=== PATIENT | female | born 1990 | race Two or more races ===

== ENCOUNTER → 2024-05-10 | Day surgery (SDC) | payer MEDICAID ==
[2024-05-04 15:06] LABS: Urine Bacteria None Seen /hpf (None Seen)
[2024-05-04 15:11] LABS: Urine Blood Negative /uL (Negative); Urine Clarity Clear (Clear); Urine Color Yellow (Yellow); Urine Mucus FEW (None Seen); Urine Protein, UAD Negative (Negative); Urine Urobilinogen Normal (Negative); Urine WBC 1 /hpf (0 - 5); Urine pH 5.5 (5.0-9.0)
[2024-05-04 15:14] LABS: Eosinophils # (auto) 0.3 10 ^3/uL (0-0.8); Monocytes # (auto) 0.5 10 ^3/uL (0-1.3); Monocytes % (auto) 5.3 % (0.0-12.0); Neutrophils # (auto) 5.8 10 ^3/uL (1.6-8.6)
[2024-05-04 15:15] LABS: Basophils # (auto) 0 10 ^3/uL (0-0.2); Basophils % (auto) 0.4 % (0.0-2.0); Eosinophils % (auto) 3.1 % (0.0-7.0); Hematocrit 26.1 % (36.0-46.0); Hemoglobin 8.4 g/dL (12.2-16.2); Lymphocytes # (auto) 2.9 10 ^3/uL (0.4-5.4); Lymphocytes % (auto) 30.3 % (10.0-50.0); Mean Corpuscular Hemoglobin 21.2 pg (28.0-32.0); Mean Corpuscular Hgb Conc. 32.3 g/dL (32.0-36.0); Mean Corpuscular Volume 65.7 fL (80.0-100.0); Neutrophils % (auto) 60.9 % (37.0-80.0); Platelet Count (auto) 293 10^3/uL (140-450); Red Blood Cells 3.97 10^6/uL (4.0-5.20); White Blood Cell 9.6 10^3/uL (4.4-10.8)
[2024-05-04 15:19] LABS: Red Cell Distribution Width 21.5 % (11.8-14.3)
[2024-05-04 15:32] LABS: Alanine Aminotransferase 44 U/L (7-40); Albumin 4.4 g/dL (3.2-4.8); Alkaline Phosphatase 110 U/L (46-116); Anion Gap 9 (5-15); Aspartate Aminotransferase 23 U/L (13-40); BUN/Creatinine Ratio 15.9 (10.0-20.0); Bilirubin, Total 0.4 mg/dL (0.2-1.0); Blood Urea Nitrogen 11 mg/dL (9-23); Calcium 9.3 mg/dL (8.7-10.4); Carbon Dioxide 25 mmol/L (20-31); Chloride 105 mmol/L (98-107); Glucose 122 mg/dL (74-106); Potassium 3.6 mmol/L (3.5-5.1); Sodium 139 mmol/L (136-145); Total Protein 7.9 g/dL (5.7-8.2)
[2024-05-04 15:33] LABS: INR 1.02 (0.9-1.15); Partial Thromboplastin Time 26.8 SEC (24.5-34.5); Prothrombin Time 10.8 sec (9.3-11.8)
[~2024-05-10] VITALS: Ht 162.6 cm; Wt 166.5 kg
[~2024-05-10] MED LIST: FER325T PO; FURO20TA3 PO; GABA-1308 PO; METF-489 PO; POTA-220 PO; PROPOFOL 10 MG/ML 20 ML IV ONE; SEMA2INJ3 SC; TRAZ-228 PO; fentaNYL CITRATE 100 MCG/2 ML VL ONE
--- NOTE | 2024-05-10 09:37 | DVHHP2 ---
GI H&P Pre-Op Assessment Date: 05/10/24 Chief complaint: Anemia, blood in stool, lower abdominal pain. HPI: per clinic note Past medical history: per clinic note Past surgical history: per clinic note Family history: per clinic note Physical exam: General: NAD, AAOX3 HEENT: PERRL, no scleral icterus, normal hearing, gums without lesions or bleeding, oropharynx clear without erythema or exudate. Neck: Supple without enlargement of the thyroid, or lymphadenopathy. Chest: Normal size and shape, no tenderness, lung echevarria clear to auscultation and percussion, nonlabored breathing. Heart: RRR, no murmur Abdomen: non-distended, no tenderness to palpation, +BS, no hepatosplenomegaly Extremities: no edema Neurological: CN II-XII intact, sensation intact in all extremities, 5+ strength in all extremities Skin: No rashes, No jaundice Assessment: - Anemia, blood in stool, lower abdominal pain. Plan: - EGD - Colonoscopy - Risks (bleeding, infection, perforation, reaction to sedation medications and cardiopulmonary arrest) and benefit of the procedure were explained to patient. Patient agrees to undergo the procedure. ZARA CARLTON MD May 10, 2024 09:37
[2024-05-10 10:08] VITALS: PULSE 95; RESP 20; TEMP 99.2; O2SAT 95
--- NOTE | 2024-05-10 10:09 | DVHOP2 ---
Operative Report DATE OF OPERATION: 05/10/24 PROCEDURE: Upper Endoscopy. PREOPERATIVE INDICATION: The patient is a 33 -year-old female undergoing endoscopy for anemia. POSTOPERATIVE DIAGNOSES: 1. Normal EGD PROCEDURE PERFORMED BY: Spencer Pozo SCOPE: Olympus videoendoscope. ASA CLASS: 4 PREOPERATIVE MEDICATIONS: MAC with Dr Up PROCEDURE IN DETAIL: After obtaining an informed consent, the patient was placed on left lateral decubitus position. The patient was then sedated with the above medications. A bite block was placed between her teeth. The endoscope was then passed through the oropharynx, into the esophagus, and through the stomach and pylorus up to the second and third part of the duodenum. The duodenum was normal in appearance. The stomach was normal in appearance. The GE junction was normal in appearance at 35 cm. The esophagus was normal in appearance. The endoscope was then withdrawn. The patient tolerated the procedure well without difficulty. COMPLICATIONS : None SPECIMENS: None DISPOSITION: D/C to home PLAN: 1. Will proceed with colonoscopy. SPENCER POZO MD May 10, 2024 10:09
--- NOTE | 2024-05-10 10:10 | DVHDS2 ---
Physician Discharge Progress N Final Diagnosis: Normal EGD Internal hemorrhoids Operations or Procedures: Operations or Procedures EGD Colonoscopy Condition on Discharge: Good Disposition: Home Discharge Instructions: Diet: Regular Activity: No Restrictions, As Tolerated Medications: Resume with previous home medications Follow Up Care: Discharge Statement: "Patient was advised to return to the ER or call 911 if any headaches, dizziness, shortness of breath, chest pain, abdominal pain, bleeding, fevers, or worsening of medical condition. Patient was counseled about treatment plan, medications, possible side effects, patientverbalized understanding. All questions were answered to the best of my ability. This discharge took greater then 30 minutes in planning, reviewing documentation, counseling the patient, and discussing with other team members." ZARA CARLTON MD May 10, 2024 10:10
--- NOTE | 2024-05-10 10:10 | DVHOP2 ---
Operative Report DATE OF OPERATION: 05/10/24 PROCEDURE: Colonoscopy. PREOPERATIVE INDICATION: The patient is a 33 -year-old female undergoing colonoscopy for anemia, blood in the stool and lower abdominal pain. POSTOPERATIVE DIAGNOSES: 1. Internal hemorrhoids PROCEDURE PERFORMED BY: Spencer Pozo M.D. SCOPE: Olympus videocolonoscope. ASA CLASS: 4 PREOPERATIVE MEDICATIONS: MAC with Dr Up PROCEDURE IN DETAIL: After obtaining an informed consent, the patient was placed on left lateral decubitus position. She was then sedated with the above medications. A rectal examination was performed that was normal. The colonoscope was then passed through the anus into the rectosigmoid and through the descending, transverse, and ascending colon up to the cecum with visualization of the appendiceal orifice, base of the cecum and the ileocecal valve. No mass or polyp was observed. There were internal hemorrhoids. The colonoscope was then withdrawn. The patient tolerated the procedure well without difficulty. WITHDRAWAL TIME: 6 minutes QUALITY OF THE PREP: [place] Bowel Prep score: 7 COMPLICATIONS : None SPECIMENS: None DISPOSITION: D/C to home PLAN: 1. Patient will need other workup for anemia. SPENCER POZO MD May 10, 2024 10:10
[2024-05-10 10:13] VITALS: PULSE 84; RESP 24; O2SAT 100
[2024-05-10 10:53] VITALS: BP 129/83; PULSE 90; RESP 20; O2SAT 95
== END | disposition home or self-care (01) ==
LOC: GI 08:16
PROVIDERS: ATTEND Internal Medicine Gastroenterology
DX: K92.1 Melena (principal); D64.9 Anemia, unspecified; R10.30 Lower abdominal pain, unspecified; K64.8 Other hemorrhoids; E11.9 Type 2 diabetes mellitus without complications; E66.9 Obesity, unspecified; Z68.44 Body mass index [BMI] 60.0-69.9, adult; Z79.84 Long term (current) use of oral hypoglycemic drugs; Z79.899 Other long term (current) drug therapy
CPT/HCPCS: 36415; 43235; 45378; 80053; 81001; 82962; 84702; 85025; 85610; 85730; J2704; J3010; J7030

== ENCOUNTER 2024-05-22 18:10 | Emergency (ER) | payer MEDICAID ==
[~2024-05-22] VITALS: Ht 162.6 cm; Wt 167.0 kg
[~2024-05-22 18:10] MED LIST changes: -PROPOFOL 10 MG/ML 20 ML IV ONE; -fentaNYL CITRATE 100 MCG/2 ML VL ONE
[2024-05-22 19:11] VITALS: BP 128/83; PULSE 79; RESP 16; O2SAT 100
--- NOTE | 2024-05-22 19:44 | ED.PDOC ---
HPI (NEURO) HPI Comments HPI: Poor Historian. 33-year-old female with a history of anemia and blood transfusion in the past sent by her PCP for evaluation of low hemoglobin above seven that was obtained on May 09. He called her today and told her to go to the ER for possible blood transfusion. Patient had blood transfusion in March. Patient was seen by GI doctor and had upper and lower endoscopies and they are suspecting with potential bleed. She has a close follow up appointment with GI. Patient denies any active bleeding. Vitals: Temp: 98.9 F RR: 16 02 sat: 100% on room air HR: 79 BP: 128/83 PMH: DM, anemia, abdominal hernia PSH: colonoscopy, endoscopy Social history: denies tobacco use, denies ETOH use, denies drug use Meds: metformin, potassium, iron, gabapentin allergies: nkda REVIEW OF SYSTEMS: CONSTITUTIONAL: Denies acute: fever, diaphoresis, chills, HEAD: Denies acute: headache, photophobia Eyes: Denies acute: Double vision, vision loss, eye pain, eye discharge. EARS: Denies acute: tinnitus, hearing loss, ear discharge, ear pain, THROAT: Denies acute: sore throat, swelling, difficulty swallowing , pain with swallowing, change in voice. NECK: Denies acute: neck pain, neck swelling, stiff neck. HEART: Denies acute : chest pain, palpitations, LUNGS: Denies acute: SOB, wheezing, cough, hemoptysis ABDOMEN: Denies acute: abdominal pain, Nausea, Vomiting, diarrhea, melena , hematemesis, hematochezia SKIN: Denies acute: rash, redness, lesions, itchiness. EXTREMITIES: Denies acute: calf pain, numbness, tingling, weakness, denies pain in extremity. Denies acute: Low back pain. Neuro: Denies acute: focal neurological deficit, motor or sensory focal neurological deficit, tremors, seizure like activity, confusion, change in mental status, loss of bowel or bladder function, cauda equina like symptoms. : Denies acute: dysuria, hematuria, flank pain, increase in urinary frequency. PSYCH: Denies acute: hallucination, suicidal ideation, homicidal ideation. FEMALE: Denies acute: abnormal vaginal bleeding, foul odor, unusual discharge. PHYSICAL EXAM: General: no acute distress, awake and alert. Head: normocephalic, atraumatic. Neck: supple, trachea is midline, no swelling. Throat: Normal phonation. Eyes:, no erythema, no purulent discharge, no proptosis, no icterus. Heart: regular rate, regular rhythm, no significant murmur appreciated. Lungs: no apparent respiratory distress, Able to speak in full sentences. No wheezing, no rhonchi, no crackles. No stridors Clear to auscultation bilaterally. Abdomen: non tender to palpation, non distended, soft, no guarding, no rebound, + bowel sounds. Morbidly obese Neuro: Awake, Alert, oriented to name, self, situation, follows commands GCS=15. Speech is normal. Skin: no petechia, no purpura, no cyanosis, slightly-pale, not jaundice. Lower extremities: --no - Pitting edema no deformity, no focal swelling, no calf TTP. Makes eye contact. moves all four extremities. Face: no apparent facial droop. Ambulating in the ED independently. Chief Complaint: Abnormal LAB's Time Seen by MD: 19:44 Primary Care Provider: carolyn Reviewed Notes: Nurses Notes, Medications, Allergies Information Source: Patient Mode of Arrival: Ambulatory Was a procedure done? Was a procedure done?: No Differential Diagnosis (SZ) Seizure: N/A General Weakness: Other (Includes but not limited to thyroid disease, encephalopathy, electrolyte abnormality, sepsis, infection, intracranial pathology, drug adverse effects, arrhythmia, kidney insufficiency, ACS, CVA, malignancy, anemia) X-Ray, Labs, Meds, VS Vital Signs Date Time Temp Pulse Resp B/P (MAP) Pulse Ox O2 Delivery O2 Flow Rate FiO2 05/22/24 19:11 98.9 79 16 128/83 (98) 100 Lab Test 05/22/24 19:45 Range/Units White Blood Count 9.1 4.4-10.8 10^3/uL Red Blood Count 4.11 4.0-5.20 10^6/uL Hemoglobin 7.9 L 12.2-16.2 g/dL Hematocrit 26.5 L 36.0-46.0 % Mean Corpuscular Volume 64.4 L 80.0-100.0 fL Mean Corpuscular Hemoglobin 19.2 L 28.0-32.0 pg Mean Corpuscular Hemoglobin Concent 29.8 L 32.0-36.0 g/dL Red Cell Distribution Width 21.2 H 11.8-14.3 % Platelet Count 306 140-450 10^3/uL Mean Platelet Volume 8.4 6.9-10.8 fL Neutrophils (%) (Auto) 60.7 37.0-80.0 % Lymphocytes (%) (Auto) 31.1 10.0-50.0 % Monocytes (%) (Auto) 5.6 0.0-12.0 % Eosinophils (%) (Auto) 2.3 0.0-7.0 % Basophils (%) (Auto) 0.3 0.0-2.0 % Neutrophils # (Auto) 5.5 1.6-8.6 10 ^3/uL Lymphocytes # (Auto) 2.8 0.4-5.4 10 ^3/uL Monocytes # (Auto) 0.5 0-1.3 10 ^3/uL Eosinophils # (Auto) 0.2 0-0.8 10 ^3/uL Basophils # (Auto) 0 0-0.2 10 ^3/uL Nucleated Red Blood Cells 0.1 % Sodium Level 140 136-145 mmol/L Potassium Level 3.7 3.5-5.1 mmol/L Chloride Level 106 98-107 mmol/L Carbon Dioxide Level 27 20-31 mmol/L Anion Gap 7 5-15 Blood Urea Nitrogen 13 9-23 mg/dL Creatinine 0.78 0.550-1.02 mg/dL Glomerular Filtration Rate Calc 103 >90 mL/min BUN/Creatinine Ratio 16.7 10.0-20.0 Serum Glucose 148 H 74-106 mg/dL Calcium Level 9.4 8.7-10.4 mg/dL Total Bilirubin 0.3 0.2-1.0 mg/dL Aspartate Amino Transferase (AST) 20 13-40 U/L Alanine Aminotransferase (ALT) 33 7-40 U/L Alkaline Phosphatase 97 46-116 U/L Total Protein 7.4 5.7-8.2 g/dL Albumin 4.1 3.2-4.8 g/dL Time of 1ST Reevaluation: 22:11 Reevaluation 1ST: Unchanged Patient Education/Counseling: Diagnosis, Treatment Family Education/Counseling: No Family Present Comments Patient presented with the above HPI.--low hemoglobin---workup was initiated. patient was found with the above mentioned diagnosis. Patient ED course and VS have been stabilized. Patient has been reassessed in the ED and remained in a stable condition. Pertinent incidental findings were discussed with the patient and/or family. Patient/family voices understanding and is agreeable with plan. Patient has been observed in the ED adequate length of time to insure improvement/stability. Patient denies active bleeding. Patient does not meet criteria for transfusion at this time. patient was discharged home in a stable condition. All the reports of any imaging studies that were ordered by myself were reviewed by myself. Departure 1 Departure Time of Disposition: 21:47 Impression: Primary Impression: Anemia Disposition: HOME / SELF CARE / HOMELESS Condition: Stable Additional Instructions: Additional discharge instructions: You MUST follow-up with your primary care/family doctor in 1 to 2 days. If you are unable to see your primary care/family doctor, please return to our emergency room for re-assessment and re-evaluation in 1 to 2 days. Return to the emergency room here in our facility or to the nearest ER [facility] if your symptoms change or worsen. CONSULTATIONS: you MUST Follow-up for consultation as soon as possible with: --GI and Hematology in 1-2 days. Please call for appointment.- You MUST call the consultants office yourself to make an appointment. You may need to arrange that through your insurance and/or your primary/family doctor. If you are unable to see the workforce management consultant in 1 to 2 days, you must return to our emergency room (or any other ER of your choice) for re-assessment and re-evaluation. Adequate fluid hydration. Continue taking your daily iron supplements Repeat CBC levels in 48-72 hours. Discharged With: Self Critical Care Note Critical Care Time?: No I personally scribed for KIERA SHER DO ([email or web address]) on 05/22/24 at 19:44. Electronically submitted by Rosario Barnhart ([email or web address]). KIERA SHER DO May 22, 2024 19:44
[2024-05-22 19:59] LABS: Basophils # (auto) 0 10 ^3/uL (0-0.2); Eosinophils # (auto) 0.2 10 ^3/uL (0-0.8); Hemoglobin 7.9 g/dL (12.2-16.2); Lymphocytes # (auto) 2.8 10 ^3/uL (0.4-5.4); Mean Corpuscular Hemoglobin 19.2 pg (28.0-32.0); Monocytes # (auto) 0.5 10 ^3/uL (0-1.3); White Blood Cell 9.1 10^3/uL (4.4-10.8)
[2024-05-22 20:02] LABS: Basophils % (auto) 0.3 % (0.0-2.0); Eosinophils % (auto) 2.3 % (0.0-7.0); Hematocrit 26.5 % (36.0-46.0); Lymphocytes % (auto) 31.1 % (10.0-50.0); Mean Corpuscular Hgb Conc. 29.8 g/dL (32.0-36.0); Mean Corpuscular Volume 64.4 fL (80.0-100.0); Monocytes % (auto) 5.6 % (0.0-12.0); Neutrophils # (auto) 5.5 10 ^3/uL (1.6-8.6); Neutrophils % (auto) 60.7 % (37.0-80.0); Nucleated Red Blood Cells % 0.1 %; Platelet Count (auto) 306 10^3/uL (140-450); Red Blood Cells 4.11 10^6/uL (4.0-5.20); Red Cell Distribution Width 21.2 % (11.8-14.3)
[2024-05-22 20:19] LABS: Alanine Aminotransferase 33 U/L (7-40); Albumin 4.1 g/dL (3.2-4.8); Alkaline Phosphatase 97 U/L (46-116); Anion Gap 7 (5-15); Aspartate Aminotransferase 20 U/L (13-40); BUN/Creatinine Ratio 16.7 (10.0-20.0); Blood Urea Nitrogen 13 mg/dL (9-23); Calcium 9.4 mg/dL (8.7-10.4); Carbon Dioxide 27 mmol/L (20-31); Chloride 106 mmol/L (98-107); Potassium 3.7 mmol/L (3.5-5.1); Sodium 140 mmol/L (136-145)
[2024-05-22 20:20] LABS: Bilirubin, Total 0.3 mg/dL (0.2-1.0); Total Protein 7.4 g/dL (5.7-8.2)
[2024-05-22 20:23] LABS: Glucose 148 mg/dL (74-106)
[2024-05-22] MEDS: SODIUM CHLORIDE 0.9% 1,000 ML IV ONE (22:41)
== END 2024-05-22 22:45 | disposition home or self-care (01) ==
LOC: ER 18:10
DX: D64.9 Anemia, unspecified (principal); E11.9 Type 2 diabetes mellitus without complications; Z98.890 Other specified postprocedural states; Z79.899 Other long term (current) drug therapy
CPT/HCPCS: 36415; 80053; 85025; 86850; 86900; 86901

== ENCOUNTER 2024-10-01 18:51 | Emergency (ER) | payer MEDICAID ==
[~2024-10-01] VITALS: Ht 162.6 cm; Wt 161.7 kg
[2024-10-01 19:00] VITALS: BP 117/76; PULSE 75; RESP 18; TEMP 98; O2SAT 97
--- NOTE | 2024-10-01 21:21 | ED.PDOC ---
History of Present Illness(SKN HPI Comments THIS IS A 34-YEAR-OLD FEMALE PRESENTS TO THE ED FOR PICC LINE CARE. PATIENT STATES LAST DRESSING CHANGE WAS OVER 1 WEEK AGO CURRENTLY HAS A PICKING HER RIGHT ARM THAT SHE USES FOR IRON INFUSIONS ONCE A WEEK. REPORTS NO FEVER, CHILLS, NAUSEA, VOMITING, OR REDNESS SURROUNDING THE PICC LINE OR DRAINAGE NOTES NO PAIN AT THIS TIME. Chief Complaint: Tube Replacement Time Seen by MD: 19:18 Primary Care Provider: NONE History of Present Illness: Nurses Notes, Medications, Allergies Allergies: Coded Allergies: NO KNOWN ALLERGIES (Unverified , 05/07/24) Home Meds Reported Medications Ferrous Sulfate (FERROUS SULFATE) 325 Mg Tb, 325 MG PO, TAB 05/07/24 Semaglutide (Ozempic) 2 Mg/3 Ml Inj, 2 MG SC QWEEKLY, INJ 05/07/24 Gabapentin (Gabapentin) 100 Mg Cap, 100 MG PO, CAP 05/07/24 Trazodone Hcl (Trazodone Hcl) 100 Mg Tab, 100 MG PO, TAB 05/07/24 Potassium Chloride (Klor-Con M20) 20 Meq Tab, 20 MEQ PO DAILY, TAB 05/07/24 Furosemide (Furosemide) 20 Mg Tab, 20 MG PO DAILY, TAB 05/07/24 Metformin Hydrochloride (METFORMIN HCL ER) 500 Mg Tab, 500 MG PO DAILY, TAB 05/07/24 Information Source: Patient Mode of Arrival: Ambulatory Past Medical History PAST MEDICAL HISTORY: Denies Past Medical History (Other): IRON DEFICIENCY Surgical History: Denies all surgeries TOWER CRANE OPERATOR History: No Pertinent TOWER CRANE OPERATOR History Family History Family History: Unknown Social History Smoker: Non-Smoker Alcohol: Denies ETOH Use Drugs: Denies Drug Use Constitutional: denies: chills, diaphoresis, fatigue, fever, malaise, sweats, weakness, others EENTM: denies: blurred vision, double vision, ear bleeding, ear discharge, ear drainage, ear pain, ear ringing, eye pain, eye redness, hearing loss, mouth pain, mouth swelling, nasal discharge, nose bleeding, nose congestion, nose pain, photophobia, tearing, throat pain, throat swelling, voice changes, others Respiratory: denies: cough, hemoptysis, orthopnea, SOB at rest, shortness of breath, SOB with excertion, stridor, wheezing, others Cardiovascular: denies: chest pain, dizzy spells, diaphoresis, Dyspnea on exertion, edema, irregular heart beat, left arm pain, lightheadedness, palpitations, PND, syncope, others Gastrointestinal: denies: abdomen distended, abdominal pain, blood streaked bowels, constipated, diarrhea, dysphagia, difficulty swallowing, hematemesis, melena, nausea, poor appetite, poor fluid intake, rectal bleeding, rectal pain, vomiting, others Genitourinary: denies: abnormal vagina bleeding, burning, dyspareunia, dysuria, flank pain, frequency, hematuria, incontinence, pain, , vagina discharge, urgency, others Neurological: denies: dizziness, fainting, headache, left sided numbness, left sided weakness, numbness, paresthesia, pre-existing deficit, right sided numbness, right sided weakness, seizure, speech problems, tingling, tremors, weakness, others Musculoskeletal: denies: back pain, gout, joint pain, joint swelling, muscle pain, muscle stiffness, neck pain, others Integumetry: reports: others (PICC LINE DRESSING RIGHT BICEP); denies: bruises, change in color, change in hair/nails, dryness, laceration, lesions, lumps, rash, wounds Allergic/Immunocompromised: denies: Difficulty Healing, Frequent Infections, Hives, Itching, others Hematologic/Lymphatic: denies: anemia, blood clots, easy bleeding, easy bruising, swollen glands, others Endocrine: denies: excessive hunger, excessive sweating, excessive thirst, excessive urination, flushing, intolerance to cold, intolerance to heat, unexpla ined weight gain, unexplained weight loss, others Psychiatric: denies: anxiety, bipolar disorder, depression, hopeless, panic disorder, schizophrenia, sleepless, suicidal, others Physical Exam General Appearance: No Apparent Distress, Normal HEENT: Pharynx Normal Neck: Full Range of Motion, Non-Tender Respiratory: Lungs Clear, No Respiratory Distress, Normal Breath Sounds Cardiovascular: No Murmur, Normal Peripheral Pulses, Regular Rate/Rhythm Breast Exam: Deferred Gastrointestinal: Non Tender, Soft Genitalia: Deferred Pelvic: Deferred Rectal: Deferred Extremities: Normal inspection, Normal range of motion Musculoskeletal : Apperance: Normal Neurologic: Alert, data management engineer II-XII nml as Tested, No Motor Deficits, Normal Affect, Normal Mood, No Sensory Deficits Cerebellar Function: Normal Reflexes: Normal Skin: Dry, Normal Color, Warm, Other (PICC LINE IN PLACE NO NOTED DRAINAGE OR SURROUNDING ERYTHEMA OLD DRESSING IS INTACT AND DRY) Lymphatic: No Adenopathy Was a procedure done? Was a procedure done?: Yes Sedation Sedation?: No Informed consent obtained: Yes Other Procedure Procedure PICC LINE DRESSING CHANGED RIGHT DISTAL BICEP Indication GREATER THAN 1 WEEK WITH OLD DRESSING INFECTION PREVENTION Anesthetic NONE Prep CLEANSED WITH CHLORAPREP X3. DONE STERILE TECHNIQUE, ALONG WITH MASK GIVEN TO PATIENT AND PROVIDER Success DRESSING CHANGED PATIENT' TOLERATED WELL PICC IN PLACE WITHOUT COMPLICATIONS Informed consent obtained: Yes Risks, benefits, and alternati: Yes X-Ray, Labs, Meds, VS Vital Signs Date Time Temp Pulse Resp B/P (MAP) Pulse Ox O2 Delivery O2 Flow Rate FiO2 10/01/24 19:00 98.0 75 18 117/76 (90) 97 98.0 X-Ray, Labs, Meds, VS Comment SEE PROCEDURE NOTE. ADVISED PATIENT TO CONTINUE TO FOLLOW UP WITH THE HOME HEALTH NURSE FOR DRESSING CHANGES. ADVISED TO CALL HER PCP IN 1-2 DAYS IF ANY CONCERNS OR COMPLICATIONS ADVISED TO CONTINUE TO MONITOR FOR SIGNS AND SYMPTOMS OF INFECTION AND UNCONTROLLED BLEEDING. PATIENT INDICATES UNDERSTANDING AGREES WITH DISCHARGE PLAN OF CARE. Time of 1ST Reevaluation: 21:20 Reevaluation 1ST: Improved Patient Education/Counseling: Diagnosis, Treatment, Prognosis, Need For Follow Up Family Education/Counseling: No Family Present Departure 1 Departure Time of Disposition: 21:20 Impression: Primary Impression: Encounter for management of peripherally inserted central catheter (PICC) Disposition: HOME / SELF CARE / HOMELESS Condition: Stable Discharged With: Self Critical Care Note Critical Care Time?: No Stability Stability form required: MELANY Herrera Oct 01, 2024 21:21
== END 2024-10-01 21:45 | disposition home or self-care (01) ==
LOC: ER 18:54
DX: Z45.2 Encounter for adjustment and management of vascular access device (principal); Z79.84 Long term (current) use of oral hypoglycemic drugs

== ENCOUNTER 2024-10-02 13:46 | Emergency (ER) | payer MEDICAID ==
[~2024-10-02] VITALS: Ht 162.6 cm; Wt 159.0 kg
[2024-10-02 14:00] VITALS: BP 118/77; PULSE 81; RESP 16; TEMP 98.2; O2SAT 95
--- NOTE | 2024-10-02 14:53 | ED.PDOC ---
History of Present Illness HPI Comments Ms. Resendiz, a 4 y/o female with past medical history significant for obesity, PCOS, type II Diabetes mellitus on metformin, internal hemorrhoid, iron- deficiency anemia, anxiety, insomnia, polyneuropathy with questionable bilateral carpal tunnel syndrome is following Dr. Lind for hemato oncology follow up and presumably receiving IV iron through venous access in the right upper arm. Patient denies any fever, chills, redness, swelling, injury, adverse effect or local pain. She is visiting today because of the physical discomfort that she could not for her right elbow due to the positional placement of the IV access. Patient is currently under evaluation for PICC line placement had undergoing extensive workup for possible source of blood loss as iron-deficiency anemia. Past medical history: As above Past surgical history: Denies Social history: Lives at home. Denies any substance abuse alcohol or smoking. Gynecologic history: Irregular periods, denies any menorrhagia metrorrhagia or heavy bleeding presumably. Last periods Few months back. Allergies: NKDA. No food allergies. Family history: Noncontributory to the ED visit. Chief Complaint: Wound Check Time Seen by MD: 13:55 Primary Care Provider: Dr. Glynn and HemOnco Dr. Ata Lind Reviewed Notes: Nurses Notes, Medications, Allergies Allergies: Coded Allergies: NO KNOWN ALLERGIES (Unverified , 05/07/24) Home Meds Reported Medications Ferrous Sulfate (FERROUS SULFATE) 325 Mg Tb, 325 MG PO, TAB 05/07/24 Semaglutide (Ozempic) 2 Mg/3 Ml Inj, 2 MG SC QWEEKLY, INJ 05/07/24 Gabapentin (Gabapentin) 100 Mg Cap, 100 MG PO, CAP 05/07/24 Trazodone Hcl (Trazodone Hcl) 100 Mg Tab, 100 MG PO, TAB 05/07/24 Potassium Chloride (Klor-Con M20) 20 Meq Tab, 20 MEQ PO DAILY, TAB 05/07/24 Furosemide (Furosemide) 20 Mg Tab, 20 MG PO DAILY, TAB 05/07/24 Metformin Hydrochloride (METFORMIN HCL ER) 500 Mg Tab, 500 MG PO DAILY, TAB 05/07/24 Information Source: Patient Mode of Arrival: Ambulatory Severity: Mild Timing: Days Duration: Since onset Prehospital treatment: None Past Medical History PAST MEDICAL HISTORY: Denies Past Medical History (Other): As per HPI Surgical History: Denies all surgeries Surgical History (Other): As per HPI 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 History Family History Family History: Unknown Family History (Other): As per HPI Social History Smoker: Non-Smoker Alcohol: Denies ETOH Use Drugs: Denies Drug Use Constitutional: denies: chills, diaphoresis, fatigue, fever, malaise, sweats, weakness, others EENTM: denies: blurred vision, double vision, ear bleeding, ear discharge, ear drainage, ear pain, ear ringing, eye pain, eye redness, hearing loss, mouth pain, mouth swelling, nasal discharge, nose bleeding, nose congestion, nose pain, photophobia, tearing, throat pain, throat swelling, voice changes, others Respiratory: denies: cough, hemoptysis, orthopnea, SOB at rest, shortness of breath, SOB with excertion, stridor, wheezing, others Cardiovascular: denies: chest pain, dizzy spells, diaphoresis, Dyspnea on exertion, edema, irregular heart beat, left arm pain, lightheadedness, palpitations, PND, syncope, others Genitourinary: denies: abnormal vagina bleeding, burning, dyspareunia, dysuria, flank pain, frequency, hematuria, incontinence, pain, , vagina discharge, urgency, others Neurological: denies: dizziness, fainting, headache, left sided numbness, left sided weakness, numbness, paresthesia, pre-existing deficit, right sided numbness, right sided weakness, seizure, speech problems, tingling, tremors, weakness, others Musculoskeletal: denies: back pain, gout, joint pain, joint swelling, muscle pain, muscle stiffness, neck pain, others Integumetry: denies: bruises, change in color, change in hair/nails, dryness, laceration, lesions, lumps, rash, wounds, others Allergic/Immunocompromised: denies: Difficulty Healing, Frequent Infections, Hives, Itching, others Hematologic/Lymphatic: denies: anemia, blood clots, easy bleeding, easy bruising, swollen glands, others Endocrine: denies: excessive hunger, excessive sweating, excessive thirst, excessive urination, flushing, intolerance to cold, intolerance to heat, unexplained weight gain, unexplained weight loss, others Psychiatric: denies: anxiety, bipolar disorder, depression, hopeless, panic disorder, schizophrenia, sleepless, suicidal, others Physical Exam General Appearance: No Apparent Distress HEENT: Normal ENT Inspection (Grossly normal ENT exam.) Neck: NOT DONE Respiratory: Lungs Clear, No Accessory Muscle Use Cardiovascular: No Edema, No JVD, No Murmur, No Gallop, Normal Peripheral Pulses, Regular Rate/Rhythm Breast Exam: Deferred Gastrointestinal: Normal Bowel Sounds Genitalia: Deferred Pelvic: Deferred Rectal: Deferred Extremities: Normal capillary refill, Normal inspection, Normal range of motion, Non-tender, Other (Right upper extremity, no local redness, tenderness, discharge, skin changes, distal neurovascular examination reveals intact when compared to the contralateral side of left upper extremity.) Neurologic: Alert, Normal Affect, Normal Mood Cerebellar Function: Other (Grossly normal, stable gait.) Reflexes: NOT DONE Skin: Other (Skin free of any abrasion or rashes, multiple tattoos) Lymphatic: NOT DONE Was a procedure done? Was a procedure done?: No Differential Dx Considerations may include: Malpositioned IV access for iron infusion Time of 1ST Reevaluation: 14:50 Reevaluation 1ST: Resolved (Patient was seen at bedside, thorough examination and counseling done, local dressing changed with aseptic measures with change a Biopatch, overall dressing with chlorhexidine and alcohol swabs. New dressing and dates are labeled. Patient is counseled regarding red flags of catheter infection. She is agreeable and advice to follow up with primary care physician/hemato Oncology within a week or as needed if earlier. Patient is hemodynamically stable, afebrile, complains of no physical distress. Discussed with Dr. Martinez.) Patient Education/Counseling: Diagnosis, Treatment, Prognosis Family Education/Counseling: No Family Present Departure 1 Departure Time of Disposition: 14:53 Impression: Primary Impression: Encounter for management of peripherally inserted central catheter (PICC) Additional Impressions: Anemia Qualified Codes: D50.9 - Iron deficiency anemia, unspecified Replacement of nonsurgical wound dressing performed Disposition: 01 HOME / SELF CARE / HOMELESS Condition: Fair Discharged With: Self Critical Care Note Critical Care Time?: No Stability Stability form required: No MARTHA LIND RESIDENT Oct 02, 2024 14:53
== END 2024-10-02 14:29 | disposition home or self-care (01) ==
LOC: ER 13:46
DX: D64.9 Anemia, unspecified (principal); E11.9 Type 2 diabetes mellitus without complications; F41.9 Anxiety disorder, unspecified; E66.9 Obesity, unspecified; Z68.44 Body mass index [BMI] 60.0-69.9, adult; Z45.2 Encounter for adjustment and management of vascular access device; Z48.00 Encounter for change or removal of nonsurgical wound dressing; Z79.899 Other long term (current) drug therapy; Z79.84 Long term (current) use of oral hypoglycemic drugs; Z79.85 Long-term (current) use of injectable non-insulin antidiabetic drugs; Z87.19 Personal history of other diseases of the digestive system

== ENCOUNTER 2024-10-23 08:49 | Emergency (ER) | payer MEDICAID ==
[~2024-10-23] VITALS: Ht 162.6 cm; Wt 161.3 kg
[2024-10-23 09:47] VITALS: BP 148/98; PULSE 98; RESP 17; TEMP 98.7; O2SAT 98
--- NOTE | 2024-11-13 11:49 | ED.PDOC ---
History of Present Illness(SKN HPI Comments 24-YEAR-OLD FEMALE PRESENTS FOR PICC LINE DRESSING CHANGE. NO OTHER COMPLAINT OR CONCERN Chief Complaint: Wound Check Time Seen by MD: 09:15 Primary Care Provider: HANY History of Present Illness: Nurses Notes, Medications, Allergies Allergies: Coded Allergies: NO KNOWN ALLERGIES (Unverified , 05/07/24) Home Meds Active Scripts Acetaminophen (Acetaminophen) 500 Mg Tab, 500 MG PO Q4HPRN, #30 TAB 0 Refills Prov:NEFTALY MEDRANO 11/06/24 Ciprofloxacin-Dexamethasone (Ciprofloxacin/Dexamethaso 0.3-0.1 %) 1 Flavia Flavia, 4 DROP OT BID for 7 Days, #1 BOTTLE 0 Refills Prov:NEFTALY MEDRANO 11/06/24 Reported Medications Ferrous Sulfate (FERROUS SULFATE) 325 Mg Tb, 325 MG PO, TAB 05/07/24 Semaglutide (Ozempic) 2 Mg/3 Ml Inj, 2 MG SC QWEEKLY, INJ 05/07/24 Gabapentin (Gabapentin) 100 Mg Cap, 100 MG PO, CAP 05/07/24 Trazodone Hcl (Trazodone Hcl) 100 Mg Tab, 100 MG PO, TAB 05/07/24 Potassium Chloride (Klor-Con M20) 20 Meq Tab, 20 MEQ PO DAILY, TAB 05/07/24 Furosemide (Furosemide) 20 Mg Tab, 20 MG PO DAILY, TAB 05/07/24 Metformin Hydrochloride (METFORMIN HCL ER) 500 Mg Tab, 500 MG PO DAILY, TAB 05/07/24 Information Source: Patient Mode of Arrival: Ambulatory Past Medical History PAST MEDICAL HISTORY: Denies Surgical History: Denies all surgeries 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 PUBLIC HEALTH History Family History Family History: Unknown Family History (Other): As per HPI Social History Smoker: Non-Smoker Alcohol: Denies ETOH Use Drugs: Denies Drug Use All Other Systems: Reviewed and Negative (PER HPI) Physical Exam General Appearance: No Apparent Distress, Normal HEENT: Normal ENT Inspection, Pharynx Normal, TMs Normal Neck: Full Range of Motion, Non-Tender, Normal, Normal Inspection Respiratory: Chest Non-Tender, Lungs Clear, No Accessory Muscle Use, No Respiratory Distress, Normal Breath Sounds Cardiovascular: No Murmur, No Gallop, Regular Rate/Rhythm Breast Exam: Deferred Gastrointestinal: No Organomegaly, Non Tender, No Pulsatile Mass, Normal Bowel Sounds, Soft Genitalia: Deferred Pelvic: Deferred Rectal: Deferred Extremities: No calf tenderness, Normal capillary refill, Normal inspection, Normal range of motion, Non-tender, No pedal edema Musculoskeletal : Apperance: Normal Neurologic: Alert, recreation facilities supervisor II-XII nml as Tested, No Motor Deficits, Normal Affect, Normal Mood, No Sensory Deficits Cerebellar Function: Normal Reflexes: Normal Skin: Dry, Normal Color, Warm Lymphatic: No Adenopathy Was a procedure done? Was a procedure done?: No Differential Diagnosis (INTG) Differential Diagnosis: Other X-Ray, Labs, Meds, VS Vital Signs Date Time Temp Pulse Resp B/P (MAP) Pulse Ox O2 Delivery O2 Flow Rate FiO2 10/23/24 09:47 98 17 98 Room Air 10/23/24 09:47 98.7 98 18 148/98 (115) 98 98.7 10/23/24 09:01 98.5 62 20 120/66 (84) 97 98.5 X-Ray, Labs, Meds, VS Comment ON REEVALUATION, PATIENT HAD SYMPTOMATIC IMPROVEMENT. PATIENT IS STABLE FOR DISCHARGE AT THIS TIME. EXTERNAL NOTES REVIEWED. TEST RESULTS AND DIAGNOSTIC IMAGING INTERPRETED. ALL DIAGNOSTIC FINDINGS, DISCHARGE CARE, EDUCATION AND INSTRUCTIONS PROVIDED FOLLOW-UP WITH PCP IN 2 TO 3 DAYS PATIENT VERBALIZED UNDERSTANDING AND AGREED TO TREATMENT PLAN VITAL SIGNS STABLE, AFEBRILE, NO ACUTE DISTRESS NOTED PATIENT AMBULATORY WITH STRONG STEADY GAIT ADVISED TO RETURN PRECAUTIONS FOR ANY NEW OR WORSENING SYMPTOMS, RETURN TO ER IMMEDIATELY FOR RE-EVALUATION PATIENT IS AWARE THAT THE PURPOSE OF THIS VISIT WAS FOR AN ACUTE MEDICAL EMERGENCY REQUIRING EMERGENT STABILIZATION. CHRONIC CONDITIONS, INCLUDING MALIGNANCIES HAVE NOT BEEN RULED OUT. PATIENT IS INSTRUCTED TO FOLLOW UP WITH PCP DIRECTED AND DISCHARGE INSTRUCTIONS FOR CONTINUED CARE AND WORKUP. IF UNABLE TO ARRANGE FOLLOW-UP, PATIENT IS TO RETURN TO THE EMERGENCY DEPARTMENT FOR REASSESSMENT. PATIENT (PARENT OR LEGAL GUARDIAN IF APPLICABLE) WAS GIVEN VERBAL AND WRITTEN DISCHARGE INSTRUCTIONS AND ACKNOWLEDGES UNDERSTANDING. Time of 1ST Reevaluation: 11:49 Reevaluation 1ST: Improved Patient Education/Counseling: Diagnosis, Treatment Family Education/Counseling: Diagnosis, Treatment Departure 1 Departure Time of Disposition: 11:49 Impression: Primary Impression: PICC (peripherally inserted central catheter) in place Disposition: 01 HOME / SELF CARE / HOMELESS Condition: Stable Additional Instructions: Discharge Note: Continue on your medications. Drink plenty of fluids. Follow up with your primary Dr. Take your prescriptions as ordered. If your condition becomes worse call and follow up with your primary Dr. for instructions or return to the ER if needed. Thank you for visiting [facility]. Discharged With: Self Critical Care Note Critical Care Time?: No Stability Stability form required: No Heart Score Heart Score: Heart Score Response (Comments) Value History N/A 0 EKG N/A 0 Age N/A 0 Risk Factors N/A 0 Troponin N/A 0 Total 0 REGAN BUTTERFIELD NP November 13, 2024 11:49
== END 2024-10-23 09:52 | disposition home or self-care (01) ==
LOC: ER 08:49
DX: Z45.2 Encounter for adjustment and management of vascular access device (principal); Z79.899 Other long term (current) drug therapy; Z79.84 Long term (current) use of oral hypoglycemic drugs

== ENCOUNTER 2024-11-06 19:02 | Emergency (ER) | payer MEDICAID ==
[~2024-11-06] VITALS: Ht 162.6 cm; Wt 163.3 kg
[2024-11-06] MEDS ORDERED: ACET500T58 PO (20:41)
[2024-11-06] MEDS ORDERED: CIPR1SUS8 OT (20:41)
--- NOTE | 2024-11-06 20:41 | ED.PDOC ---
Eye-HPI HPI Comments 34-year-old female presents to ER with complaints of right-sided earache x3 days. Patient reports that she has been experiencing right-sided earache pain and muffled hearing to right ear x3 days. Notes that she was prescribed antibiotics for a "right ear infection" by an urgent care provider prior to arrival to ER but states that the pharmacy was closed and is requesting for antibiotics to be sent to a pharmacy that as currently open. Patient also is requesting that her right sided PICC line dressing be changed, noting that the dressing was changed last 1.5 weeks ago and notes that she has the PICC line for weekly iron transfusions due to history of anemia. Denies fevers, nausea/vomiting or any further symptoms/complaints Chief Complaint: Earache Time Seen by MD: 19:20 Primary Care Provider: HANY Heath Notes: Nurses Notes, Medications, Allergies Allergies: Coded Allergies: NO KNOWN ALLERGIES (Unverified , 05/07/24) Home Meds Active Scripts Acetaminophen (Acetaminophen) 500 Mg Tab, 500 MG PO Q4HPRN, #30 TAB 0 Refills Prov:NEFTALY MEDRANO 11/06/24 Ciprofloxacin-Dexamethasone (Ciprofloxacin/Dexamethaso 0.3-0.1 %) 1 Flavia Flavia, 4 DROP OT BID for 7 Days, #1 BOTTLE 0 Refills Prov:NEFTALY MEDRANO 11/06/24 Reported Medications Ferrous Sulfate (FERROUS SULFATE) 325 Mg Tb, 325 MG PO, TAB 05/07/24 Semaglutide (Ozempic) 2 Mg/3 Ml Inj, 2 MG SC QWEEKLY, INJ 05/07/24 Gabapentin (Gabapentin) 100 Mg Cap, 100 MG PO, CAP 05/07/24 Trazodone Hcl (Trazodone Hcl) 100 Mg Tab, 100 MG PO, TAB 05/07/24 Potassium Chloride (Klor-Con M20) 20 Meq Tab, 20 MEQ PO DAILY, TAB 05/07/24 Furosemide (Furosemide) 20 Mg Tab, 20 MG PO DAILY, TAB 05/07/24 Metformin Hydrochloride (METFORMIN HCL ER) 500 Mg Tab, 500 MG PO DAILY, TAB 05/07/24 Information Source: Patient Mode of Arrival: Ambulatory Past Medical History PAST MEDICAL HISTORY: Anemia, Anxiety, Depression, DM Past Medical History (Other): Lupus Surgical History (Other): Right-sided PICC line 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: No Pertinent 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 Family History Family History: Unknown Family History (Other): As per HPI Social History Smoker: Non-Smoker Alcohol: Denies ETOH Use Drugs: Denies Drug Use Lives In: Home Constitutional: denies: chills, diaphoresis, fatigue, fever, malaise, sweats, weakness, others EENTM: reports: others (As stated in HPI) Respiratory: denies: cough, hemoptysis, orthopnea, SOB at rest, shortness of breath, SOB with excertion, stridor, wheezing, others Cardiovascular: denies: chest pain, dizzy spells, diaphoresis, Dyspnea on exertion, edema, irregular heart beat, left arm pain, lightheadedness, palpitations, PND, syncope, others Gastrointestinal: denies: abdomen distended, abdominal pain, blood streaked bowels, constipated, diarrhea, dysphagia, difficulty swallowing, hematemesis, me alexys, nausea, poor appetite, poor fluid intake, rectal bleeding, rectal pain, vomiting, others Genitourinary: denies: abnormal vagina bleeding, burning, dyspareunia, dysuria, flank pain, frequency, hematuria, incontinence, pain, , vagina discharge, urgency, others Neurological: denies: dizziness, fainting, headache, left sided numbness, left sided weakness, numbness, paresthesia, pre-existing deficit, right sided numbness, right sided weakness, seizure, speech problems, tingling, tremors, weakness, others Musculoskeletal: denies: back pain, gout, joint pain, joint swelling, muscle pain, muscle stiffness, neck pain, others Integumetry: reports: others (As stated in HPI) Allergic/Immunocompromised: denies: Difficulty Healing, Frequent Infections, Hi ves, Itching, others Hematologic/Lymphatic: denies: anemia, blood clots, easy bleeding, easy bruising, swollen glands, others Endocrine: denies: excessive hunger, excessive sweating, excessive thirst, excessive urination, flushing, intolerance to cold, intolerance to heat, unexplained weight gain, unexplained weight loss, others Psychiatric: denies: anxiety, bipolar disorder, depression, hopeless, panic disorder, schizophrenia, sleepless, suicidal, others Physical Exam General Appearance: No Apparent Distress, Obese HEENT: PERRL/EOMI, Pharynx Normal, Other (Mild erythema/swelling/mild yellow purulent drainage noted to right middle ear canal, unable to visualize right TM due to purulent drainage, slight decreased whispered hearing noted on right, No TTP to right mastoid process noted . Ear exam on left-unremarkable) Neck: Full Range of Motion, Non-Tender, Normal Respiratory: Chest Non-Tender, Lungs Clear, No Accessory Muscle Use, No Respiratory Distress, Normal Breath Sounds Cardiovascular: No Murmur, No Gallop, Regular Rate/Rhythm Breast Exam: Deferred Gastrointestinal: NOT DONE Genitalia: Deferred Pelvic: Deferred Rectal: Deferred Extremities: Normal capillary refill, Normal range of motion Neurologic: Alert, neuropsychology medical consultant II-XII nml as Tested, No Motor Deficits, Normal Affect, Normal Mood, No Sensory Deficits Cerebellar Function: Normal Reflexes: Normal Skin: Dry, Normal Color, Warm, Other (Right-sided PICC line in place without any signs of infection) Peripheral Pulses: 2+ carotid (R), 2+ carotid (L), 2+ Radial (R), 2+ Radial (L), 2+ Brachial (R), 2+ Brachial (L) Lymphatic: No Adenopathy Was a procedure done? Was a procedure done?: No Sedation Sedation?: No EENT DIFF Eye: N/A Ear: Cerumen Impaction, Otitis Media, Perforation Other Differential Diagnosis cellulitis X-Ray, Labs, Meds, VS Vital Signs Date Time Temp Pulse Resp B/P (MAP) Pulse Ox O2 Delivery O2 Flow Rate FiO2 11/06/24 20:57 98.3 85 16 115/78 (90) 98 98.3 11/06/24 20:57 85 16 98 Room Air 11/06/24 19:45 98.3 85 16 115/78 (90) 98 98.3 Current Medications Medications (Trade) Dose Ordered Sig/Felipe Route Start Time Stop Time Status Last Admin Ceftriaxone Sodium (Rocephin) 1,000 mg ONCE ONCE IM 11/06/24 20:45 11/06/24 20:46 DC 11/06/24 20:53 Acetaminophen/ Codeine Phosphate (Tylenol W/Cod #3 Tablet) 1 tab ONCE ONCE PO 11/06/24 21:00 11/06/24 21:01 DC 11/06/24 21:01 Ondansetron HCl (Zofran Po) 4 mg ONCE ONCE PO 11/06/24 21:00 11/06/24 21:01 DC 11/06/24 21:01 Rocephin 1 g IM ordered Tylenol # three one tablet p.o. ordered Zofran 4 mg p.o. ordered PICC line dressing changed at bedside by RN using sterile technique. Patient tolerated well without any complications Advised to follow up with PCP and home health nurse in 1-2 days Patient verbalized understanding and agreeable with current plan of care Advised to return to ER immediately if symptoms worsen Time of 1ST Reevaluation: 20:12 Reevaluation 1ST: N/A Patient Education/Counseling: Diagnosis, Treatment, Prognosis, Need For Follow Up Family Education/Counseling: No Family Present Departure 1 Departure Time of Disposition: 20:32 Impression: Primary Impression: Otitis externa of right ear Qualified Codes: H60.501 - Unspecified acute noninfective otitis externa, right ear Additional Impression: Encounter for management of peripherally inserted central catheter (PICC) Disposition: 01 HOME / SELF CARE / HOMELESS Condition: Stable e-Prescriptions Acetaminophen (Acetaminophen) 500 Mg Tab 500 MG PO Q4HPRN, #30 TAB 0 Refills Prov: NEFTALY MEDRANO 11/06/24 Ciprofloxacin-Dexamethasone (Ciprofloxacin/Dexamethaso 0.3-0.1 %) 1 Flavia Flavia 4 DROP OT BID for 7 Days, #1 BOTTLE 0 Refills Prov: NEFTALY MEDRANO 11/06/24 Discharged With: Friend Critical Care Note Critical Care Time?: No Stability Stability form required: No Heart Score Heart Score: Heart Score Response (Comments) Value History N/A 0 EKG N/A 0 Age N/A 0 Risk Factors N/A 0 Troponin N/A 0 Total 0 NEFTALY MEDRANO November 06, 2024 20:41
[2024-11-06] MEDS: cefTRIAXone SOD 1,000 MG VL IM ONE (20:53)
[2024-11-06 20:57] VITALS: BP 115/78; PULSE 85; RESP 16; TEMP 98.3; O2SAT 98
[2024-11-06] MEDS: ONDANSETRON ODT 4 MG TAB PO ONE (21:01)
[2024-11-06] MEDS: ACETAMINOPHEN/CODEINE#3 (300/30mg) TAB PO ONE (21:01)
== END 2024-11-06 21:35 | disposition home or self-care (01) ==
LOC: ER 19:08
DX: H60.91 Unspecified otitis externa, right ear (principal); F41.9 Anxiety disorder, unspecified; E11.9 Type 2 diabetes mellitus without complications; Z45.2 Encounter for adjustment and management of vascular access device; Z79.899 Other long term (current) drug therapy
CPT/HCPCS: 96372; 99283; J0696; Q0162

== ENCOUNTER 2024-11-07 11:11 | Emergency (ER) | payer MEDICAID ==
[~2024-11-07] VITALS: Ht 162.6 cm; Wt 162.1 kg
[~2024-11-07 11:11] MED LIST changes: +ACET500T58 PO; +CIPR1SUS8 OT
[2024-11-07 11:39] VITALS: BP 114/62; PULSE 77; RESP 18; TEMP 97.9; O2SAT 98
[2024-11-07 12:34] LABS: Basophils # (auto) 0 10 ^3/uL (0-0.2); Basophils % (auto) 0.3 % (0.0-2.0); Eosinophils # (auto) 0.2 10 ^3/uL (0-0.8); Monocytes # (auto) 0.4 10 ^3/uL (0-1.3); Neutrophils # (auto) 5.5 10 ^3/uL (1.6-8.6)
[2024-11-07 12:35] LABS: Urine Bacteria None Seen /hpf (None Seen)
[2024-11-07 12:36] LABS: Eosinophils % (auto) 2.5 % (0.0-7.0); Hemoglobin 12.1 g/dL (12.2-16.2); Lymphocytes % (auto) 24.7 % (10.0-50.0); Mean Corpuscular Hemoglobin 25.8 pg (28.0-32.0); Mean Corpuscular Hgb Conc. 33.5 g/dL (32.0-36.0); Neutrophils % (auto) 67.5 % (37.0-80.0); Platelet Count (auto) 189 10^3/uL (140-450); Red Blood Cells 4.68 10^6/uL (4.0-5.20); Red Cell Distribution Width 22.8 % (11.8-14.3); White Blood Cell 8.2 10^3/uL (4.4-10.8)
[2024-11-07 12:40] LABS: Chloride 102 mmol/L (98-107); Potassium 3.9 mmol/L (3.5-5.1); Sodium 138 mmol/L (136-145)
[2024-11-07 12:41] LABS: Anion Gap 8 (5-15); Calcium 9.6 mg/dL (8.7-10.4); Carbon Dioxide 28 mmol/L (20-31)
[2024-11-07 12:46] LABS: Blood Urea Nitrogen 9 mg/dL (9-23); Glucose 105 mg/dL (74-106)
[2024-11-07 12:51] LABS: Urine Blood Negative /uL (Negative); Urine Clarity Clear (Clear); Urine Color Light-Yellow (Yellow); Urine Mucus FEW (None Seen); Urine Protein, UAD Negative (Negative); Urine Specific Gravity 1.025 (1.001-1.035); Urine Squamous Epithelial Cell FEW /hpf (<5); Urine Urobilinogen Normal (Negative); Urine WBC 1 /HPF (0-5); Urine pH 6.5 (5.0-9.0)
== END 2024-11-07 12:58 | disposition left against medical advice (07) ==
LOC: ER 11:11
DX: Z48.00 Encounter for change or removal of nonsurgical wound dressing (principal); Z53.21 Procedure and treatment not carried out due to patient leaving prior to being seen by health care provider
CPT/HCPCS: 36415; 80048; 81001; 85025

== ENCOUNTER 2024-11-21 15:22 | Emergency (ER) | payer MEDICAID ==
[~2024-11-21] VITALS: Ht 162.6 cm; Wt 161.8 kg
[2024-11-21 15:45] VITALS: TEMP 98.6
[2024-11-21 17:01] VITALS: BP 128/78; PULSE 69; RESP 18; O2SAT 97
--- NOTE | 2024-11-21 17:40 | ED.PDOC ---
History of Present Illness(SKN HPI Comments 34 y.o female with PMHx of DM, anxiety, depression, liver cirrhosis, lupus and anemia, presents to the ED for a picc line dressing change. Patient has a PICC line to the right upper extremity which she uses to receive blood and iron transfusions. Last transfusion was iron 2 weeks ago in which was also the last time her dressing was changed. Patient presents with dressing peeling off and with skin irritation. Patient denies any fever, chills, swelling, pain to extremity or any other symptoms. Chief Complaint: Wound Check Time Seen by MD: 17:25 Primary Care Provider: NORRIS History of Present Illness: Nurses Notes, Medications, Allergies Allergies: Coded Allergies: NO KNOWN ALLERGIES (Unverified , 05/07/24) Home Meds Active Scripts Acetaminophen (Acetaminophen) 500 Mg Tab, 500 MG PO Q4HPRN, #30 TAB 0 Refills Prov:NEFTALY MEDRANO 11/06/24 Ciprofloxacin-Dexamethasone (Ciprofloxacin/Dexamethaso 0.3-0.1 %) 1 Flavia Flavia, 4 DROP OT BID for 7 Days, #1 BOTTLE 0 Refills Prov:NEFTALY MEDRANO 11/06/24 Reported Medications Ferrous Sulfate (FERROUS SULFATE) 325 Mg Tb, 325 MG PO, TAB 05/07/24 Semaglutide (Ozempic) 2 Mg/3 Ml Inj, 2 MG SC QWEEKLY, INJ 05/07/24 Gabapentin (Gabapentin) 100 Mg Cap, 100 MG PO, CAP 05/07/24 Trazodone Hcl (Trazodone Hcl) 100 Mg Tab, 100 MG PO, TAB 05/07/24 Potassium Chloride (Klor-Con M20) 20 Meq Tab, 20 MEQ PO DAILY, TAB 05/07/24 Furosemide (Furosemide) 20 Mg Tab, 20 MG PO DAILY, TAB 05/07/24 Metformin Hydrochloride (METFORMIN HCL ER) 500 Mg Tab, 500 MG PO DAILY, TAB 05/07/24 Information Source: Patient Mode of Arrival: Ambulatory Severity: Moderate Timing: Hours Duration: Since onset Location: Arm Object: None Wound Type: None Immunization Status of Animal: Current History of: Diabetes Associated Signs and Symptoms: Redness Past Medical History PAST MEDICAL HISTORY: Anemia, Anxiety, Depression, DM Past Medical History (Other): Lupus Surgical History: Denies all surgeries PASTE MAKER History: No Pertinent PASTE MAKER History Family History Family History: Unknown Family History (Other): As per HPI Social History Smoker: Non-Smoker Alcohol: Denies ETOH Use Drugs: Denies Drug Use Lives In: Home Constitutional: denies: chills, diaphoresis, fatigue, fever, malaise, sweats, weakness, others EENTM: denies: blurred vision, double vision, ear bleeding, ear discharge, ear drainage, ear pain, ear ringing, eye pain, eye redness, hearing loss, mouth pain, mouth swelling, nasal discharge, nose bleeding, nose congestion, nose pain, photophobia, tearing, throat pain, throat swelling, voice changes, others Respiratory: denies: cough, hemoptysis, orthopnea, SOB at rest, shortness of breath, SOB with excertion, stridor, wheezing, others Cardiovascular: denies: chest pain, dizzy spells, diaphoresis, Dyspnea on exertion, edema, irregular heart beat, left arm pain, lightheadedness, palpitations, PND, syncope, others Gastrointestinal: denies: abdomen distended, abdominal pain, blood streaked bowels, constipated, diarrhea, dysphagia, difficulty swallowing, hematemesis, melena, nausea, poor appetite, poor fluid intake, rectal bleeding, rectal pain, vomiting, others Genitourinary: denies: abnormal vagina bleeding, burning, dyspareunia, dysuria, flank pain, frequency, hematuria, incontinence, pain, , vagina discharge, urgency, others Neurological: denies: dizziness, fainting, headache, left sided numbness, left sided weakness, numbness, paresthesia, pre-existing deficit, right sided numbn ess, right sided weakness, seizure, speech problems, tingling, tremors, weakness, others Musculoskeletal: denies: back pain, gout, joint pain, joint swelling, muscle pain, muscle stiffness, neck pain, others Integumetry: reports: wounds; denies: bruises, change in color, change in hair/nails, dryness, laceration, lesions, lumps, rash, others Allergic/Immunocompromised: denies: Difficulty Healing, Frequent Infections, Hives, Itching, others Hematologic/Lymphatic: denies: anemia, blood clots, easy bleeding, easy bruising, swollen glands, others Endocrine: denies: excessive hunger, excessive sweating, excessive thirst, excessive urination, flushing, intolerance to cold, intolerance to heat, unexplained weight gain, unexplained weight loss, others Psychiatric: denies: anxiety, bipolar disorder, depression, hopeless, panic disorder, schizophrenia, sleepless, suicidal, others All Other Systems: Reviewed and Negative Physical Exam General Appearance: No Apparent Distress, Normal HEENT: Pharynx Normal Neck: Normal Inspection Respiratory: Chest Non-Tender, Lungs Clear, No Accessory Muscle Use, No Respiratory Distress, Normal Breath Sounds Cardiovascular: No Edema, No JVD, No Murmur, No Gallop, Normal Peripheral Pulses, Regular Rate/Rhythm Breast Exam: Deferred Gastrointestinal: NOT DONE Genitalia: Deferred Pelvic: Deferred Rectal: Deferred Extremities: Normal inspection Neurologic: Alert, health insurance adjuster II-XII nml as Tested, No Motor Deficits, Normal Affect, Normal Mood, No Sensory Deficits Cerebellar Function: Normal Reflexes: Normal Skin: Wounds (right upper extremity skin irritation due to picc line dressing ) Lymphatic: No Adenopathy Was a procedure done? Was a procedure done?: No Differential Diagnosis (INTG) Differential Diagnosis: Other (infection, local skin irritation, catheter migration, or dislodgement) X-Ray, Labs, Meds, VS Vital Signs Date Time Temp Pulse Resp B/P (MAP) Pulse Ox O2 Delivery O2 Flow Rate FiO2 11/21/24 17:01 69 18 97 Room Air 11/21/24 17:01 65 18 128/78 (95) 97 11/21/24 15:45 98.6 76 18 105/55 (72) 97 98.6 Time of 1ST Reevaluation: 17:35 Reevaluation 1ST: Unchanged Patient Education/Counseling: Diagnosis, Treatment, Prognosis Family Education/Counseling: No Family Present Departure 1 Departure Time of Disposition: 17:41 (Patient's PICC line was redressed. We will discharge patient with outpatient follow up) Impression: Primary Impression: Encounter for central line care Disposition: HOME / SELF CARE / HOMELESS Condition: Stable Additional Instructions: Your central line was redressed today. Discharged With: Self Critical Care Note Critical Care Time?: No Stability Stability form required: No I personally scribed for CHRISTIANE SLADE MD ([email or web address]) on 11/21/24 at 17:40. Electronically submitted by Siria Chappell ([facility]). CHRISTIANE SLADE MD Nov 21, 2024 17:40
== END 2024-11-21 18:35 | disposition home or self-care (01) ==
LOC: ER 15:26
DX: Z45.2 Encounter for adjustment and management of vascular access device (principal); E11.9 Type 2 diabetes mellitus without complications; F32.A Depression, unspecified; F41.9 Anxiety disorder, unspecified; Z79.84 Long term (current) use of oral hypoglycemic drugs; Z79.899 Other long term (current) drug therapy